=== PATIENT | male | born 2000 | race Caucasian/White ===

== ENCOUNTER 2020-07-30 07:34 | Emergency (ER) | payer OTHER ==
[~2020-07-30] VITALS: Ht 190.5 cm; Wt 74.8 kg
[2020-07-30] MEDS ORDERED: ALLEGRA-D 12 H1 EACH PO (08:12)
[2020-07-30 08:32] VITALS: BP 127/78
== END 2020-07-30 08:33 | disposition home or self-care (01) ==
LOC: M.ERS 07:34
DX: J02.8 Acute pharyngitis due to other specified organisms (principal); R51.9 Headache, unspecified; R10.9 Unspecified abdominal pain